=== PATIENT | male | born 1975 | race Two or more races ===

== ENCOUNTER 2024-04-15 18:56 | Emergency (ER) | payer OTHER, MEDICAID ==
[~2024-04-15] VITALS: Ht 172.7 cm; Wt 68.1 kg
[2024-04-15] MEDS: levETIRAcetam 1000 mg/100ml 100 ML IV ONE (19:00)
[2024-04-15 19:05] VITALS: RESP 16; O2SAT 96
[2024-04-15 20:05] LABS: Hematocrit 48.3 % (41.0-53.0); Hemoglobin 15.2 g/dL (13.5-17.5); Mean Corpuscular Hemoglobin 31.6 pg (28.0-32.0); Mean Corpuscular Hgb Conc. 31.5 g/dL (32.0-36.0); Mean Corpuscular Volume 100.4 fL (80.0-100.0); Platelet Count (auto) 294 10^3/uL (140-450); Red Blood Cells 4.81 10^6/uL (4.5-5.90); Red Cell Distribution Width 14.7 % (11.8-14.3); White Blood Cell 15.9 10^3/uL (4.4-10.8)
[2024-04-15 20:09] LABS: Basophils % (manual) 0 (0.0-2.0); Blast Cells 0; Metamyelocytes % 0; Myelocytes % 0; Promyelocytes % 0; Reactive Lymphocytes 0
[2024-04-15 20:30] LABS: Band Neutrophils % (manual) 1; Eosinophils % (manual) 4 (0-7); Lymphocytes % (manual) 52 (10.0-50.0); Macrocytosis Slight; Monocytes % (manual) 5 (0-12); Platelet Estimate Adequate
[2024-04-15 20:33] LABS: Alanine Aminotransferase 17 U/L (7-40); Alkaline Phosphatase 113 U/L (46-116); Anion Gap 26.00001 (5-15); Aspartate Aminotransferase 19 U/L (13-40); BUN/Creatinine Ratio 6.4 (10.0-20.0); Blood Alcohol < 3.0 mg/dL (<10); Blood Urea Nitrogen 7 mg/dL (9-23); Calcium 9.5 mg/dL (8.7-10.4); Chloride 106 mmol/L (98-107); Glucose 168 mg/dL (74-106); Potassium 3.4 mmol/L (3.5-5.1); Sodium 142 mmol/L (136-145)
[2024-04-15 20:34] LABS: Albumin 4.9 g/dL (3.2-4.8); Bilirubin, Total 0.5 mg/dL (0.2-1.0); Total Protein 8.2 g/dL (5.7-8.2)
[2024-04-15 20:57] LABS: Carbon Dioxide < 10 mmol/L (20-30)
[2024-04-15] MEDS: ONDANSETRON HCL 4 MG/2 ML VIAL IV ONE (21:04)
[2024-04-15] MEDS: PROCHLORPERAZINE EDISYLATE 5 MG/ML 2ML VIAL ONE (21:12)
[2024-04-15] MEDS: PROCHLORPERAZINE EDISYLATE 5 MG/ML 2ML VIAL IV ONE (21:15)
[2024-04-15 23:04] VITALS: BP 137/88; PULSE 84; RESP 16; TEMP 98.3; O2SAT 96
[2024-04-15] MEDS ORDERED: LORazepam 2MG/ML-1ML VIAL IV PRN (23:45)
[2024-04-15] MEDS ORDERED: MORPHINE SULFATE INJ 2 MG/ml SYRG IV PRN (23:45)
[2024-04-15] MEDS ORDERED: SODIUM CHLORIDE 0.9% 1,000 ML IV SCH (23:45)
[2024-04-15] MEDS ORDERED: NITROGLYCERIN 0.4 MG SL TAB SL PRN (23:45)
[2024-04-15] MEDS ORDERED: ONDANSETRON HCL 4 MG/2 ML VIAL IV PRN (23:45)
[2024-04-16] MEDS ORDERED: lamoTRIgine 25 MG TAB PO SCH (10:00)
[2024-04-16] MEDS ORDERED: levETIRAcetam 500 mg/100ml 100 ML IV SCH (10:00)
== END 2024-04-16 00:03 | disposition admitted as inpatient to this hospital (09) ==
LOC: ER 18:56 → EDBD 18:56 → TELE 23:41 → UNDOADMIN 23:41 → ER 04-16 00:03
DX: G40.901 Epilepsy, unspecified, not intractable, with status epilepticus (principal); E87.20 Acidosis, unspecified; R11.2 Nausea with vomiting, unspecified; Z87.820 Personal history of traumatic brain injury
CPT/HCPCS: 36415; 36600; 70450; 71045; 80053; 80320; 82805; 85007; 85027; 96365; 96375; 99285; J0780; J1953; J2405

== ENCOUNTER 2025-04-25 13:06 | Emergency (ER) | payer OTHER, MEDICAID ==
[~2025-04-25] VITALS: Ht 172.7 cm; Wt 72.7 kg
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
[2025-04-25] MEDS: LIDOCAINE 1% (LOCAL ANESTH.) PF 5ml SDV ID ONE (15:47)
[2025-04-25] MEDS: BACITRACIN TOP OINT 1 UD PKG TOP ONE (15:47)
[2025-04-25 16:55] VITALS: BP 142/87; PULSE 72; RESP 16; TEMP 98.3; O2SAT 98
== END 2025-04-25 16:57 | disposition home or self-care (01) ==
LOC: ER 13:06 → EDBD 13:06 → ER 16:57
DX: S61.511A Laceration without foreign body of right wrist, initial encounter (principal); X58.XXXA Exposure to other specified factors, initial encounter; Y93.89 Activity, other specified; Y92.89 Other specified places as the place of occurrence of the external cause; Y99.8 Other external cause status
CPT/HCPCS: 12002